=== PATIENT | female | born 1960 | race Caucasian/White ===

== ENCOUNTER 2018-06-11 05:47 | Day surgery (SDC) | payer OTHER ==
[2018-06-11] MEDS ORDERED: FENTAnyl 50 MCG/ML VIAL (07:59)
[2018-06-11] MEDS ORDERED: MIDAZOLAM 1 MG/ML 2 ML INJ (07:59)
== END 2018-06-11 11:30 | disposition home or self-care (01) ==
LOC: GIL 05:47
DX: K29.30 Chronic superficial gastritis without bleeding (principal); K44.9 Diaphragmatic hernia without obstruction or gangrene; I10 Essential (primary) hypertension; E78.5 Hyperlipidemia, unspecified; Z80.0 Family history of malignant neoplasm of digestive organs
CPT/HCPCS: 43239; 88305; 88312